=== PATIENT | male | born 1955 | race Caucasian/White ===

== ENCOUNTER 2019-03-13 15:52 | Emergency (ER) | payer OTHER, SELFPAY ==
[2019-03-13 16:15] VITALS: BP 132/83; PULSE 81; RESP 15; TEMP 36.1; O2SAT 93; BMI 40.1
--- NOTE | 2019-03-13 16:22 | DI.RAD.S_ITS ---
PROCEDURE: XR HAND LT MIN 3V INDICATIONS: sprayed left hand close prox with vat washer TECHNIQUE: 3 views of the hand(s) acquired. COMPARISON: None. FINDINGS: Bones: No fractures or dislocations. Carpal bones are normally aligned. No suspicious bony lesions. Soft tissues: No suspicious soft tissue calcifications. IMPRESSION: No acute fracture. No osseous lesion. If symptoms and/or clinical suspicion for pathology persist, further assessment with repeat, or advanced imaging (e.g., CT, MRI, or bone scan) may be helpful for further assessment. Dictated by: Aristides Lantigua M.D. on 03/13/2019 at 16:54 Approved by: Aristides Lantigua M.D. on 03/13/2019 at 16:55
--- NOTE | 2019-03-13 16:57 | PC.NURSE ---
pt preasure washing his trailer and he was on the ladder when the nozzle injured his left hand, obtained small open skin with superficial abrasion, now with swelling noted. pt removed his wedding ring given to spouse. full range of motion, +distal cms intact. site irrigated and cleansed with hibiclen with warm water, tolerated well, pt doesnt recall his last tetanus immunization.
[2019-03-13] MEDS: TET,DIPH,PERTUSS(ACELL),VAC/PF 0.5 ML SYRINGE IM (17:01)
[2019-03-13 17:05] VITALS: BP 135/77; PULSE 75; RESP 16
--- NOTE | 2019-03-13 17:10 | ED.UPPEXIN ---
HPI - Extremity Injury (Upper) <GEORGINA Webber - Last Filed: 03/13/19 22:56> General Chief Complaint: Extremity Injury, Upper Stated Complaint: LT HAND INJURY Time Seen by Provider: 03/13/19 16:42 Source: patient Mode of arrival: ambulatory Limitations: no limitations History of Present Illness HPI narrative: 63-year-old healthy male presents to the emergency department complaining of left hand pain and laceration after getting hit in the hand with a knit goods washer. The patient was washing the trailer when he slipped and bumped the knit goods washer and it is sprayed his hand. The small puncture wound on left hand bleeding controlled with pressure. Associated slight swelling. Denies numbness, tingling, arm pain, limited range of motion, redness, or fevers. MD complaint: injury to: left and hand Onset (ago): hour(s) Related Data Allergies Allergy/AdvReac Type Severity Reaction Status Date / Time No Known Drug Allergies Allergy Verified 03/13/19 16:20 Review of Systems <GEORGINA Webber - Last Filed: 03/13/19 22:56> Review of Systems REVIEW OF SYSTEMS: GENERAL: Denies fever or chills. HENT: No head trauma, hearing loss or sore throat. EYES: No loss of vision, double vision, eye pain, or irritation. CARDIOVASCULAR: No chest pain or syncope. RESPIRATORY: No shortness of breath or cough. GASTROINTESTINAL: No nausea, vomiting, diarrhea, or constipation. GENITOURINARY: No flank pain or dysuria. MUSCULOSKELETAL: Complains of swelling, no weakness, or deformities. See HPI. INTEGUMENTARY: Complains of wound on hand see HPI.. NEURO: No numbness, tingling, memory loss, or confusion. PSYCH: No behavior or mood changes. PFSH <GEORGINA Webber - Last Filed: 03/13/19 22:56> Surgical History H/O shoulder surgery (Acute) Social History (Updated 03/13/19 @ 22:52 by GEORGINA Webber) Smoking Status: Never smoker Social History Smoking Status: Never smoker Exam <GEORGINA Webber - Last Filed: 03/13/19 22:56> Initial Vital Signs Initial Vital Signs: Vital Signs Temperature 97.0 F L 03/13/19 16:15 Pulse Rate 81 03/13/19 16:15 Respiratory Rate 15 03/13/19 16:15 Blood Pressure 132/83 03/13/19 16:15 Pulse Oximetry 93 03/13/19 16:15 PHYSICAL EXAMINATION: GENERAL: Well groomed, alert, and cooperative Answers questions promptly and appropriately. Vital signs noted. HENT: Normocephalic, atraumatic. Oral mucosa is pink and moist. EYES: PERRLA, EOMIs, conjunctiva pink, sclera white, no periorbital swelling. CHEST: Normal to inspection and without deformities. CARDIOVASCULAR: S1 and S2 sounds normal. Regular rate and rhythm, no murmurs, clicks, or bruits. No pedal edema. RESPIRATORY: Normal respiratory rate, trachea midline, airway patent. No stridor, nasal flaring or accessory muscle use. Lungs are clear in all smith without wheeze, rhonchi, or crackles. GASTROINTESTINAL: Bowel sounds normoactive. Abdomen is soft and non-tender. No organomegaly. MUSCULOSKELETAL: Normal gait and coordination. Equal tone and mass bilaterally. No spinal tenderness or deformities. EXTREMITIES: CMS intact. Full range of motion and 5/5 strength to upper and lower extremities SKIN: 0.5 cm puncture wound to middle of left hand. Bleeding controlled with pressure, slight swelling and surrounding tissues. No bony tenderness to left hand. Wound irrigated with saline and repaired as stated below. Warm, dry, soft, appropriate color for ethnicity. No lesions, rashes, or wounds. NEURO: Alert and Oriented X 3. Good coordination. No ataxia, or sensory deficits, or cognitive issues. PSYCH: Appropriate affect and mood. <Adrianne Castano MD - Last Filed: 03/17/19 07:09> Initial Vital Signs Initial Vital Signs: Vital Signs Temperature 97.0 F L 03/13/19 16:15 Pulse Rate 81 03/13/19 16:15 Respiratory Rate 15 03/13/19 16:15 Blood Pressure 132/83 03/13/19 16:15 Pulse Oximetry 93 03/13/19 16:15 Procedures <GEORGINA Webber - Last Filed: 05/30/19 22:56> Laceration Repair Left hand: Site: hand Side (If applicable): left Size (cm): 1 Description: other (Circular) Depth: simple, single layer Skin layer closed with: steri-strips (3 steristrips and dermabond ) Course <GEORIGNA Webber - Last Filed: 03/13/19 22:56> Course Narrative: Tetanus was updated, wound was irrigated, and repaired. Orders Ordered: Discontinued Medications Diphtheria/Tetanus/Acell Pertussis (Adacel) 0.5 ml IM .ONCE ONE Stop: 03/13/19 17:01 Last Admin: 03/13/19 17:01 Dose: 0.5 ml Reevaluation(s) Reevaluation #1: Re-evaluated after wound repair CMS intact Consultations Consultation #1: Patient staffed with Dr. Castano whom agrees with plan of care. Vital Signs - 8 hr 03/13/19 16:15 03/13/19 17:05 Temperature 97.0 F L Pulse Rate 81 75 Respiratory Rate 15 16 Blood Pressure 132/83 Blood Pressure [Left Arm] 135/77 Pulse Oximetry 93 <Adrianne Castano MD - Last Filed: 03/17/19 07:09> Orders Ordered: Discontinued Medications Diphtheria/Tetanus/Acell Pertussis (Adacel) 0.5 ml IM .ONCE ONE Stop: 03/13/19 17:01 Last Admin: 03/13/19 17:01 Dose: 0.5 ml Vital Signs - 8 hr 03/13/19 16:15 03/13/19 17:05 Temperature 97.0 F L Pulse Rate 81 75 Respiratory Rate 15 16 Blood Pressure 132/83 Blood Pressure [Left Arm] 135/77 Pulse Oximetry 93 MDM - Extremity Injury (Upper) <GEORGINA Webber - Last Filed: 03/13/19 22:56> Medical Records Attestation: I reviewed the patient's medical records. Lab Data Attestation: I reviewed the patient's lab results. Imaging Data Hand XR: Radiologist's impression: [address] [address] XRay Report Signed Patient: SHEELA SOARES WMR#: [id number] : 7Acct:[id number] Age/Sex: 63 / MDate of Service: 03/13/19 Loc: ED Accession Number: [id number] Procedure: XR hand LT min 3V Ordering Provider: Adrianne Castano MD PROCEDURE: XR HAND LT MIN 3V INDICATIONS: sprayed left hand close prox with knit goods washer TECHNIQUE: 3 views of the hand(s) acquired. COMPARISON: None. FINDINGS: Bones: No fractures or dislocations. Carpal bones are normally aligned. No suspicious bony lesions. Soft tissues: No suspicious soft tissue calcifications. IMPRESSION: No acute fracture. No osseous lesion. If symptoms and/or clinical suspicion for pathology persist, further assessment with repeat, or advanced imaging (e.g., CT, MRI, or bone scan) may be helpful for further assessment. Dictated by: Aristides Lantigua M.D. on 03/13/2019 at 16:54 Approved by: Aristides Lantigua M.D. on 03/13/2019 at 16:55 [facility] Narrative Medical decision making narrative: Wound irrigated with normal saline and repaired with glue and Steri-Strips as minute bleeding was present, and wound was in an area of low tension. Discussed with patient options of sutures or glue, patient preferred glue and Steri-Strips. Instructed patient about wound care, follow-up instructions given and return precautions discussed. Discharge Plan Departure Patient Disposition: Home Clinical Impression: Laceration, Hand pain, left Discharge Date/Time: 03/13/19 17:42 Interventions: ED Discharge Assessment Last Done: 03/13/19 17:41 Instructions: DI for Laceration Repair Steri-Strips Activity Restrictions/Additional Instructions: Thank you for entrusting me with your care today. As discussed, her x-ray does not show any fractures. The wound was cleaned and dressed with glue and Steri-Strips. Do not submerge your hand onto water for the next 24-48 hours. After that you may gently wash your hand but do not soak it in water. Do not pull the glue or the Steri-Strips off, they will fall off on their own. Monitor for signs of infection such as pus, increased redness, increased swelling and pain. He may use Tylenol and ibuprofen for pain. Follow-up with your primary care provider as needed.
== END 2019-03-13 17:42 | disposition home or self-care (01) ==
PROVIDERS: Emergency Provider Nurse Practitioner
DX: S61.412A Laceration without foreign body of left hand, initial encounter (principal)
CPT/HCPCS: 73130; 90471; 99282; 99283; 90715